=== PATIENT | male | born 1975 | race Caucasian/White ===

== ENCOUNTER 2017-03-17 12:06 | Outpatient (CLI) | payer OTHER ==
--- NOTE | 2017-03-17 14:44 | Diagnostic Imaging Report ---
Clinical Indication:PAIN Technique: 3 views of the left wrist Comparison: None Findings: There is a comminuted and possibly intra-articular nondisplaced fracture of the distal radius. No definite associated ulnar fracture. No carpal fracture demonstrated. Joint spaces are preserved. There is an old healed fracture deformity of the fifth metacarpal. Impression: Positive for nondisplaced distal radial fracture Findings discussed by phone with Dr. Starks at the time of interpretation
== END 2017-03-17 14:06 | disposition home or self-care (01) ==
LOC: RAD 12:06
DX: S63.502A Unspecified sprain of left wrist, initial encounter (principal); S52.502A Unspecified fracture of the lower end of left radius, initial encounter for closed fracture; X58.XXXA Exposure to other specified factors, initial encounter; Y93.9 Activity, unspecified; Y92.9 Unspecified place or not applicable

== ENCOUNTER 2018-10-19 15:10 | Outpatient (CLI) | payer OTHER ==
--- NOTE | 2018-10-19 15:55 | Diagnostic Imaging Report ---
Indication: Chest pain Comparison: None 2 views of the chest obtained. Findings: Cardiomediastinal silhouette and pulmonary vascularity are within normal limits for age. The diaphragmatic contour is smooth and costophrenic angles are sharp. No pleural effusions are identified. The bones are unremarkable. Impression: No acute disease
== END 2018-10-19 17:10 | disposition home or self-care (01) ==
LOC: RAD 15:10
DX: R07.9 Chest pain, unspecified (principal)
CPT/HCPCS: 71046